=== PATIENT | female | born 1980 | race Hispanic/Latino ===

== ENCOUNTER 2020-05-05 10:57 | Outpatient (CLI) | payer OTHER ==
--- NOTE | 2020-05-05 13:23 | Fluoroscopy Report ---
UPPER GI HISTORY: K30 FUNCTIONAL DYSPEPSIA. TECHNIQUE: Single and double contrast barium technique utilized to evaluate the esophagus, stomach, and duodenal C-loop. FINDINGS: To begin the exam, swallowing was evaluated in the lateral position under direct fluorosco py. Swallowing was normal. No mucosal irregularity, mass, mass effect, or critical stenosis. There were no abnormal tertiary c ontractions as seen with dysmotility. No gastroesophageal reflux. IMPRESSION: Unremarkable exam. Fluoroscopic time: 2.6 minutes Number of fluoroscopic images: 16 Signer Name: Alpesh Gee Jr, MD Signed: 05/05/2020 1:19 PM Workstation Name: [id number]
== END 2020-05-05 10:58 | disposition home or self-care (01) ==
LOC: FLUORO 10:57
PROVIDERS: ATTEND Surgery
DX: K30 Functional dyspepsia (principal)
CPT/HCPCS: 74246

== ENCOUNTER 2020-05-06 10:07 | Day surgery (SDC) | payer OTHER ==
[~2020-05-06 10:07] MED LIST: SODIUM CHLORIDE 0.9% 1000 ML 1,000 ML IV SCH
--- NOTE | 2020-05-06 11:52 | Operative Report ---
Operative Report Operative Report: DATE: 05/06/2020 SURGERY: Upper endoscopy. SURGEON: Magaly Herrera M.D. PROCEDURE: EGD with biopsy PRE OP DX: morbid obesity, GERD POST OP DX: morbid obesity, GERD, gastritis TYPE OF ANESTHESIA: MAC. ESTIMATED BLOOD LOSS: None. COMPLICATIONS: None. SPECIMENS REMOVED: antral biopsy FINDINGS: 1. Small hiatal hernia, gastritis 2. Otherwise, normal esophagus, stomach and first portion of duodenum. INDICATIONS:INDICATION FOR PROCEDURE: Patient is a 39-year-old female with a long history of morbid obesity. She is planned to have a weight loss procedure and is here for preoperative planning EGD. PROCEDURE DETAILS: After consent was reviewed, patient was taken back to the operating room where patient was placed in the left lateral decubitus position and a bite block was placed in the mouth. After a time-out was called, MAC anesthesia was initiated. I then passed the endoscope into her oropharynx, into her esophagus, visualized the entire esophagus, which was all within normal limits. Z-line was noted to about 36cm from incisors. I then visualized the stomach and the first portion of the duodenum and there were no abnormalities I could clearly visualize except for antral gastritis. A cold forceps biopsy of the antrum was taken and will be sent to pathology to evaluate for H.pylori. I then retroflexed the scope in the stomach and visualized the hiatus and I could see a small hiatal hernia. I then desufflated the stomach and removed the endoscope. Patient tolerated procedure well and was transferred to recovery room in good and stable condition.
--- NOTE | 2020-05-06 11:53 | Discharge Summary ---
Providers - Providers Date of Admission: 05/06/2020 Date of discharge: 05/06/20 Attending physician: MYNOR ARMENDARIZ MD Primary care physician: MANAGER [employer]ING Hospitalization Reason for admission: EGD Condition: Good Procedures: EGD Hospital course: Pt presented for a pre-op EGD as part of planning for up coming bariatric surgery. Procedure was uneventful and pt recovered well and was discharged to home. Disposition: DC- TO HOME OR SELFCARE Core Measure Documentation - Palliative Care Palliative Care/ Comfort Measures: Not Applicable - Core Measures Any of the following diagnoses?: none Exam - Physical Exam Narrative exam: unchanged from pre-op Plan Activity: no restrictions Diet: low carbohydrate Follow up with: PRIMARY CAREMD [Primary Care Provider] - 7 Days
[2020-05-06] MEDS ORDERED: LIDOCAINE MPF (2%) 20 MG/1 ML VIAL 5 ML ONE (12:16)
[2020-05-06] MEDS ORDERED: propofoL 200 MG/20 ML VIAL IV ONE ×3 (12:16→12:24)
[2020-05-06] MEDS ORDERED: WATER FOR IRRIG STERILE 250 ML BOTTLE IR ONE (12:23)
[2020-05-06] MEDS ORDERED: KETAMINE/STERILE WATER 50 MG/ML SYRINGE ONE (12:26)
[2020-05-06] MEDS ORDERED: MIDAZOLAM 2 MG/2 ML INJ ONE (12:26)
--- NOTE | 2020-05-06 13:09 | Anesthesia Consultation ---
Anesthesia Consult and Med Hx Date of service: 05/06/20 - Airway Anesthetic Teeth Evaluation: Good ROM Head & Neck: Adequate Mental/Hyoid Distance: Adequate Mallampati Class: Class III Intubation Access Assessment: Possibly Difficult - Pulmonary Exam CTA: Yes - Cardiac Exam Cardiac Exam: RRR - Pre-Operative Health Status ASA Pre-Surgery Classification: ASA3 Proposed Anesthetic Plan: MAC - Pulmonary Hx Smoking: No Hx Respiratory Symptoms: No Hx Sleep Apnea: Yes - Cardiovascular System Hx Hypertension: No - Central Nervous System CVA: No - Endocrine Hx Renal Disease: No Hx Liver Disease: No Hx Insulin Dependent Diabetes: No Hx Non-Insulin Dependent Diabetes: No Hx Thyroid Disease: No - Other Systems Hx Obesity: Yes (BMI 47)
--- NOTE | 2020-05-06 13:09 | Anesthesia Day of Surgery ---
Anesthesia Day of Surgery - Day of Surgery Patient Examined: Yes Patient H&P Reviewed: Yes Patient is NPO: Yes
--- NOTE | 2020-05-06 13:55 | Post Anesthesia Evaluation ---
- Post Anesthesia Evaluation Patient Participated: Yes Airway Patent: Yes Stable Respiratory Function: Yes Nausea/Vomiting: No Temp > 96.8F: Yes Pain Manageable: Yes Adequeate Hydration: Yes Anesthesia Complications: No
[2020-05-06 19:06] VITALS: BP 112/71
== END 2020-05-06 10:08 | disposition home or self-care (01) ==
LOC: GIO 10:07
PROVIDERS: ATTEND Surgery
DX: K21.9 Gastro-esophageal reflux disease without esophagitis (principal); E66.01 Morbid (severe) obesity due to excess calories; K44.9 Diaphragmatic hernia without obstruction or gangrene; G47.33 Obstructive sleep apnea (adult) (pediatric); K29.70 Gastritis, unspecified, without bleeding; K31.89 Other diseases of stomach and duodenum; Z87.891 Personal history of nicotine dependence; Z68.42 Body mass index [BMI] 45.0-49.9, adult
CPT/HCPCS: 43239; 81025; 88305; J2250; J2704; J3490

== ENCOUNTER 2020-05-19 09:15 | Inpatient (IN) | payer OTHER ==
[2020-05-13 11:33] LABS: Basophils # (Auto) 0.1 K/mm3 (0.0-0.1); Basophils % (Auto) 0.7 % (0.0-1.8); Eosinophils # (Auto) 0.2 K/mm3 (0.0-0.4); Eosinophils % (Auto) 2.3 % (0.0-4.3); Hematocrit 30.3 % (30.3-42.9); Hemoglobin 9.5 gm/dl (10.1-14.3); Mean Corpuscular HGB Conc 31 % (30-34); Mean Corpuscular Volume 64 fl (79-97); Monocytes # (Auto) 0.5 K/mm3 (0.0-0.8); Monocytes % (Auto) 6.5 % (0.0-7.3); Platelet Count 381 K/mm3 (140-440); Red Blood Count 4.77 M/mm3 (3.65-5.03)
--- NOTE | 2020-05-13 12:01 | Anesthesia Consultation ---
Anesthesia Consult and Med Hx Date of service: 05/19/20 - Airway Anesthetic Teeth Evaluation: Good ROM Head & Neck: Adequate Mental/Hyoid Distance: Adequate Mallampati Class: Class I Intubation Access Assessment: Good - Pre-Operative Health Status ASA Pre-Surgery Classification: ASA3 Proposed Anesthetic Plan: General - Pulmonary Hx Smoking: Yes (Past hx) Hx Respiratory Symptoms: No (+2FS) Hx Sleep Apnea: Yes (Has not received CPAP yet) - Cardiovascular System Hx Coronary Artery Disease: No (Negative ETT [id number]. Pt states +cardiac clearance) - Central Nervous System Hx Neuromuscular Disorder: Yes (Migraines) Hx Psychiatric Problems: No - Hematic Hx Anemia: Yes - Other Systems Hx Cancer: No
[2020-05-13 13:06] LABS: BUN/Creatinine Ratio 23; Blood Urea Nitrogen 21 mg/dL (7-17); Calcium 10.3 mg/dL (8.4-10.2); Hemolysis Index 7; Iron 317 ug/dL (37-170)
[~2020-05-19 09:15] MED LIST changes: +ENOXAPARIN 40 MG/0.4 ML INJ SUB-Q NR; +LACTATED RINGERS 1,000 ML IV SCH; -SODIUM CHLORIDE 0.9% 1000 ML 1,000 ML IV SCH; +ceFAZolin/Water 2 GM/20 ML 2 GM/20 ML SYRINGE IV NR; +metroNIDAZOLE/NS 500 MG/100 ML 500 MG/100 ML BAG IV NR
[2020-05-19] MEDS ORDERED: HYDROcodone/APAP 7.5-325MG-15ML ORAL LIQD PO PRN (10:56)
[2020-05-19] MEDS ORDERED: MORPHINE 2 MG/1 ML INJ IV PRN (10:56)
[2020-05-19] MEDS ORDERED: ONDANSETRON 4 MG/2 ML INJ IV PRN ×2 (10:56→12:08)
[2020-05-19] MEDS ORDERED: HYDROmorphone 1 MG/1 ML INJ IV PRN (10:56)
[2020-05-19] MEDS ORDERED: hydrALAZINE 20 MG/1 ML INJ IV PRN (10:56)
[2020-05-19] MEDS ORDERED: MIDAZOLAM 2 MG/2 ML INJ IV NR (11:37)
[2020-05-19] MEDS ORDERED: MIDAZOLAM 2 MG/2 ML INJ ONE (11:38)
[2020-05-19] MEDS: SCOPOLAMINE TRANSDERMAL PATCH 72 HR TD SCH (11:40)
[2020-05-19] MEDS ORDERED: fentaNYL 100 MCG/2 ML INJ IV PRN (12:08)
--- NOTE | 2020-05-19 12:08 | Anesthesia Day of Surgery ---
Anesthesia Day of Surgery - Day of Surgery Patient Examined: Yes Patient H&P Reviewed: Yes Patient is NPO: Yes
[2020-05-19] MEDS ORDERED: BUPIVACAINE/PF (0.25%) 2.5 MG/ML 30 ML VIAL INFILTRATI ONE ×2 (13:25→15:16)
[2020-05-19] MEDS ORDERED: LIDOCAINE 1%/EPINEPHRINE 1:100,000 VIAL (20 ML) INFILTRATI ONE ×3 (13:25→15:16)
[2020-05-19] MEDS ORDERED: HYDROmorphone 1 MG/1 ML INJ ONE (14:08)
[2020-05-19] MEDS ORDERED: ROCURONIUM 50 MG/5 ML INJ IV ONE (14:08)
[2020-05-19] MEDS ORDERED: KETOROLAC 30 MG/1 ML INJ ONE (14:08)
[2020-05-19] MEDS ORDERED: ONDANSETRON 4 MG/2 ML INJ ONE (14:08)
[2020-05-19] MEDS ORDERED: dexAMETHasone 20 MG/5 ML VIAL ONE (14:08)
[2020-05-19] MEDS ORDERED: LIDOCAINE MPF (2%) 20 MG/1 ML VIAL 5 ML ONE (14:08)
[2020-05-19] MEDS ORDERED: KETAMINE/STERILE WATER 50 MG/ML SYRINGE ONE (14:09)
[2020-05-19] MEDS ORDERED: propofoL 200 MG/20 ML VIAL IV ONE (14:09)
[2020-05-19] MEDS ORDERED: SODIUM CHLORIDE 0.9% IRRIG SOLN 2000 ML IR ONE (15:17)
[2020-05-19] MEDS ORDERED: NEOSTIGMINE 10MG/10 ML INJ MDV ONE (15:57)
[2020-05-19] MEDS ORDERED: GLYCOPYRROLATE 0.4 MG/2 ML INJ ONE (15:57)
--- NOTE | 2020-05-19 16:05 | Operative Report ---
Operative Report Operative Report: DATE: 07/20/2019 Surgeon: Magaly Herrera MD Sonoscope Operator surgeon: Erich Ashley CSA Pre-op Dx: morbid obesity Post-op Dx: morbid obesity Procedure: 1. laparoscopic sleeve gastrectomy, Anesthesia: GETA EBL: <10ml Specimen: gastric remnant Complication: none immediate Indication: 39 year old female with a history of morbid obesity . Pt is here for sleeve gastrectomy for weight loss to achieve healthier weight and improve or resolve her co-morbidities. She expressed understanding of the risks and b enefits. PROCEDURE IN DETAIL: After consent was reviewed, patient was taken back to the operating room, where patient was placed supine on the bed with both arms out. The patient's legs were doubly strapped to the bed. Patient had a foot board in place. Patient had a body warmer placed by anesthesia. General anesthesia was induced with successful endotracheal intubation. Patient was then prepped and draped in normal sterile surgical fashion. After a time-out was called, I made a stab incision in the left subcostal area and placed a Veress needle through this incision and insufflated the abdomen to 18 mmHg pressure. I then counted down a handsbreadth below the xiphoid process in the midline and slightly left lateral injected local anesthetic and made about 1 cm transverse incision. I then used a 5-mm Optiview trocar to enter into the abdomen. There was no gross injury to any intra-abdominal structures. I then placed a 30-degree scope through this port and inspected the abdomen. I then placed a 5-mm port in the right upper quadrant, and 1 epigastric area below the costovertebral angle. I then placed a 15-mm port about a handsbreadth in the right mid abdomen. After which a 5mm port was placed in left upper quadrant port along the anterior axillary line in a similar fashion. A liver retractor was placed to the epigastric port to elevate the left lateral lobe and liver. The anterior gastric fat pad was excised. Starting approximately 6 cm proximal to the pylorus, using a LigaSure device the short gastrics were taken all the way to the left neel. Once the lateral portio n of the stomach was mobile anesthesia passed a 40 [place] Citizen bougie along the medial aspect to act as a stent. Using serial firings of endoscopic stapler two gold, followed by 4 blue, the lateral portion of the stomach was transected making sure to did not close to the 2 cm to the incisura. All staple loads were supported with Ethicon buttress strips. The sleeve stomach was seen to be without kink obstruction or twisting. The pressure was decreased to 10 mmHg. The staple line was inspected for approximately 5 minutes. There was no significant bleeding appreciated except for a slight loose at the most distal portion of the staple line. Bleeding was minimal and easily controlled with minimal cautery. Tisseel was then sprayed along the entirety of the staple line. The liver retractor was removed. This was after the gastric remnant was grasped and pulled into the 15 mm trocar site. The stomach was extracted via the 15 mm trocar site. After the fascia had to be stretched with a Erica clamp to easily remove the stomach, the fascia was closed using a jeffrey xenia device at the level of the fascia with an 0 PDS. trocars were removed under direct visualization. All skin incisions were closed with 4-0 Monocryl followed by Dermabond. Patient was awoken, extubated, and taken to recovery stable condition. All counts were correct.
[2020-05-19] MEDS ORDERED: LACTATED RINGERS 1,000 ML ONE (16:15)
[2020-05-19] MEDS: SIMETHICONE 80 MG CHEW TAB PO PRN (18:10)
--- NOTE | 2020-05-19 18:10 | Post Anesthesia Evaluation ---
- Post Anesthesia Evaluation Patient Participated: Yes Airway Patent: Yes Stable Respiratory Function: Yes Nausea/Vomiting: Yes (improved with IV antiemetics) Temp > 96.8F: Yes Pain Manageable: Yes Adequeate Hydration: Yes Anesthesia Complications: No Other Comments: Nausea vomiting just prior to transfer to floor with small amount blood tinged saliva. Improved with IV antiemetics.
[2020-05-19] MEDS: metroNIDAZOLE/NS 500 MG/100 ML 500 MG/100 ML BAG IV SCH ×2 (18:11→21:45)
[2020-05-19] MEDS: METOCLOPRAMIDE 10 MG/2 ML INJ IV PRN (20:02)
[2020-05-19] MEDS: ceFAZolin/NS 1 GM/50 ML 1 GM/50 ML BAG IV SCH (21:47)
[2020-05-19] MEDS: KETOROLAC 30 MG/1 ML INJ IV SCH ×3 (21:49→22:22)
[2020-05-20] MEDS: SIMETHICONE 80 MG CHEW TAB PO PRN ×2 (04:42→12:33)
[2020-05-20] MEDS: KETOROLAC 30 MG/1 ML INJ IV SCH ×3 (04:53→17:38)
[2020-05-20] MEDS: metroNIDAZOLE/NS 500 MG/100 ML 500 MG/100 ML BAG IV SCH (05:44)
[2020-05-20] MEDS: ceFAZolin/NS 1 GM/50 ML 1 GM/50 ML BAG IV SCH ×2 (05:45→20:18)
[2020-05-20 06:24] LABS: Hematocrit 26.5 % (30.3-42.9); Mean Corpuscular HGB Conc 30 % (30-34); Platelet Count 292 K/mm3 (140-440); Red Blood Count 3.92 M/mm3 (3.65-5.03)
[2020-05-20 06:28] LABS: Mean Corpuscular Volume 68 fl (79-97); Red Cell Distribution Width 34.3 % (13.2-15.2)
[2020-05-20 06:35] LABS: Alanine Aminotransferase 35 units/L (7-56); Albumin 3.6 g/dL (3.9-5); BUN/Creatinine Ratio 15; Blood Urea Nitrogen 12 mg/dL (7-17); Calcium 8.9 mg/dL (8.4-10.2); Hemolysis Index 4
--- OUTSIDE RECORDS SUMMARY | 2020-05-20 07:02 | External Medical Summary ---
:1980 Author Organization [facility], [facility] Address [address] [place] [address] Care Team Providers Name Role Phone Sharon Unavailable [phone] PROBLEMS Type Condition ICD9-CM [id number] Onset Condition SNOMED Code Notes Code Code Dates Status Problem Dietary Z71.3 Active 188224696 counseling and surveillance Problem Sleep apnea, G47.30 Active 96282760 unspecified Problem Morbid (severe) E66.01 Active 258522486 obesity due to excess calories Problem Functional K30 Active 5915819 dyspepsia Problem Sleep disorder, G47.9 Active 55925548 unspecified Problem Body mass index Z68.42 Active 199679157 [BMI] 45.0-49.9, adult ALLERGIES No Known Allergies ENCOUNTERS from 1980 to 2020-05-19 Encounter Location Date Provider Diagnosis [facility] May, Magaly Herrera Morbi d (severe) [facility] [place] E66.01 [place] [address] Sleep apnea, unspecified G47 .30 IMMUNIZATIONS No Information SOCIAL HISTORY Sex Assigned At : Social History Observation Description Sex Assigned At Unknown REASON FOR REFERRAL from 1980 to 2020-05-19 Diagnosis 1 Morbid (severe) obesity due to excess calories Diagnosis 2 Functional dyspepsia Diagnosis 3 Body mass index [BMI] 45.0-4 9.9, adult Diagnosis 4 Sleep disorder, unspecified Diagnosis 5 Dietary counseling and surve illance Diagnosis 6 Gastro-esophageal reflux dis ease without esophagitis Diagnosis 7 Sleep apnea, unspecified Referral Organization [facility] Referring Provider First Name Magaly Referring Provider Last Name Sharon Referring Provider Specialty Surgery Referring Provider Referring Provider email [email or web address] Referred Provider [facility], - Referral Priority Routine VITAL SIGNS Height 64 in May, Weight 274.2 lbs May, Temperature 98.4 degrees Fahrenheit May, BMI 47 kg/m2 May, Blood pressure systolic 133 mm Hg May, Blood pressure diastolic 84 mm Hg May, MEDICATIONS Medication SIG (Take, Route, Notes Start Date End Date Status Frequency, Duration) Omeprazole 40 MG 1 capsule Orally Once a May, Active day for 30 day(s) Hydrocodone-Acetaminophe 15 ml as needed Orally May, 20 20 May, Active n 7.5-325 MG/15ML every 6 hrs for 7 days Zofran 4 MG 1-2 tablet Orally every May, Active 4-6 hours prn nausea for 30 day(s) PROCEDURES No Information RESULTS No Results REASON FOR VISIT Gastric Sleeve pre op MEDICAL (GENERAL) HISTORY Type Description Date Medical History Morbid (severe) obesity due to excess ca lories Medical History Functional dyspepsia Medical History Body mass index [BMI] 45.0-49.9, adult Medical History sleep apnea Surgical History EGD 04/2020 Goals Section No Information Health Concerns No Information MEDICAL EQUIPMENT No Information MENTAL STATUS No Information FUNCTIONAL STATUS No Information ASSESSMENTS Encounter Date Diagnosis Assessment Notes Treatment Notes Treatm ent Clinical Notes May, Morbid (severe) An hour was spent obesity due to with patient excess calories reinforcing diet, (ICD-10 - E66.01) vitamin requirements and lifestyle education, A quiz was administered and reviewed to verify understanding of intended procedure and post operative care. Consent forms were reviewed with patient and signed answering all questions, Pre-operative labs were ordered. May, Sleep apnea, Continue use of CPAP unspecified machine, should (ICD-10 - G47.30) resolve or greatly improve after weight loss surgery, and will titrate CPAP machine as tolerated. PLAN OF TREATMENT Medication Medication Name Sig Start Date Stop Date Omeprazole 40 MG 1 capsule Orally Once a day May, for 30 day(s) Zofran 4 MG 1-2 tablet Orally every 4-6 May, hours prn nausea for 30 day(s) Hydrocodone-Acetaminophen 15 ml as needed Orally every May, 2 020 9 May, 2020 7.5-325 MG/15ML 6 hrs for 7 days Treatment Notes Assessment Notes Clinical Notes Morbid (severe) obesity due to An hour was spent with patien t excess calories reinforcing diet, vitamin requirements and lifestyle education, A quiz was administered and reviewed to verify understanding of intended procedure and post operative care. Consent forms were reviewed with patient and signed answering all questions, Pre-operative labs were ordered. Sleep apnea, unspecified Continue use of CPAP machine, shoul d resolve or greatly improve after weight loss surgery, and will titrate CPAP machine as tolerated. Referrals Referral Date Details Next Appt Details for surgery Reason: Provider Name:Magaly Herrera, 7 09:30:00 AM, [address] [place] [place], [address], Provider Name:Vikascatrachito Herrera, 2020-05-14 2 01:00:00 PM, [address], [facility] [place], [place], [address], Insurance Providers Payer Name Payer Address Payer Insured Patient Coverage Cover age Phone Name Relationship to Start Date End Date Insured [facility] [address] [phone] [address] self Insurance [facility] [id number]
--- NOTE | 2020-05-20 09:43 | Progress Note ---
Assessment and Plan POD#1 s/p lap sleeve gastrectomy . Afebrile and stable. Pt had post op drop in Hb which is likely due to dilution and she has a hx of heavy bleeding during her menses which she is currently on. She had a Hb of 7.5 a month ago while on her menses and is seeing a intellectual property legal assistant and says she needs to see her plasma processing technician. No clinical signs of leak or bleeding at this time. will recheck labs in am, encourage regular ambulation and clear liquids. Subjective Date of service: 05/20/20 Patient Reports: Positive: feels better, pain is less, tolerating liquids well (no acute events overnight. pt says that her pain is better controlled today and that her nausea has passed.) Objective Vital Signs - 12hr 05/19/20 05/19/20 05/19/20 22:22 22:37 23:58 Temperature 97.9 F Pulse Rate 57 L Respiratory 20 18 Rate Blood Pressure 105/52 O2 Sat by Pulse 99 97 Oximetry 05/20/20 05/20/20 05/20/20 04:53 05:32 05:55 Temperature 98.7 F Pulse Rate 58 L Respiratory 8 L 20 18 Rate Blood Pressure 123/56 O2 Sat by Pulse 95 Oximetry 05/20/20 05/20/20 07:42 07:45 Temperature 98.2 F Pulse Rate 72 Respiratory 18 Rate Blood Pressure 126/57 O2 Sat by Pulse 82 L 92 Oximetry - General physical appearance well developed, well nourished, no distress, no pain - Respiratory normal expansion, normal respiratory effort - Abdomen soft, other (incisions c/d/i, appropriatley tender to palpation) - Labs 05/20/20 06:05 05/20/20 06:05 Diabetes panel 05/20/20 Range/Units 06:05 Sodium 139 (137-145) mmol/L Potassium 4.4 (3.6-5.0) mmol/L Chloride 108.3 H (98-107) mmol/L Carbon Dioxide 22 (22-30) mmol/L BUN 12 (7-17) mg/dL Creatinine 0.8 (0.6-1.2) mg/dL Glucose 114 H (65-100) mg/dL Calcium 8.9 (8.4-10.2) mg/dL AST 27 (5-40) units/L ALT 35 (7-56) units/L Alkaline Phosphatase 47 (35-129) units/L Total Protein 6.3 (6.3-8.2) g/dL Albumin 3.6 L (3.9-5) g/dL Calcium panel 05/20/20 Range/Units 06:05 Calcium 8.9 (8.4-10.2) mg/dL Albumin 3.6 L (3.9-5) g/dL Pituitary panel 05/20/20 Range/Units 06:05 Sodium 139 (137-145) mmol/L Potassium 4.4 (3.6-5.0) mmol/L Chloride 108.3 H (98-107) mmol/L Carbon Dioxide 22 (22-30) mmol/L BUN 12 (7-17) mg/dL Creatinine 0.8 (0.6-1.2) mg/dL Glucose 114 H (65-100) mg/dL Calcium 8.9 (8.4-10.2) mg/dL Adrenal panel 05/20/20 Range/Units 06:05 Sodium 139 (137-145) mmol/L Potassium 4.4 (3.6-5.0) mmol/L Chloride 108.3 H (98-107) mmol/L Carbon Dioxide 22 (22-30) mmol/L BUN 12 (7-17) mg/dL Creatinine 0.8 (0.6-1.2) mg/dL Glucose 114 H (65-100) mg/dL Calcium 8.9 (8.4-10.2) mg/dL Total Bilirubin 0.30 (0.1-1.2) mg/dL AST 27 (5-40) units/L ALT 35 (7-56) units/L Alkaline Phosphatase 47 (35-129) units/L Total Protein 6.3 (6.3-8.2) g/dL Albumin 3.6 L (3.9-5) g/dL
[2020-05-20 11:18] LABS: Basophils % (Manual) 0 % (0.0-1.8); Eosinophils % (Manual) 0 % (0.0-4.3); Hypochromasia 2+; Total Cells Counted 100
[2020-05-20 11:19] LABS: Anisocytosis 3+; Ovalocytes Few; Platelet Estimate Consistent w Auto
[2020-05-20] MEDS: ENOXAPARIN 40 MG/0.4 ML INJ SUB-Q SCH (12:27)
[2020-05-20] MEDS: LACTATED RINGERS 1,000 ML IV SCH (15:21)
[2020-05-20] MEDS ORDERED: LORazepam 2 MG/ML VIAL IV PRN (17:35)
[2020-05-20] MEDS: METOCLOPRAMIDE 10 MG/2 ML INJ IV PRN (17:37)
[2020-05-20] MEDS: SCOPOLAMINE TRANSDERMAL PATCH 72 HR TD SCH (20:16)
[2020-05-21] MEDS: KETOROLAC 30 MG/1 ML INJ IV SCH ×4 (01:19→06:37)
[2020-05-21] MEDS: SIMETHICONE 80 MG CHEW TAB PO PRN (01:41)
[2020-05-21] MEDS: LACTATED RINGERS 1,000 ML IV SCH (04:32)
[2020-05-21 06:51] LABS: Hematocrit 24.1 % (30.3-42.9); Hemoglobin 7.6 gm/dl (10.1-14.3); Mean Corpuscular HGB Conc 32 % (30-34); Platelet Count 266 K/mm3 (140-440); Red Blood Count 3.54 M/mm3 (3.65-5.03)
[2020-05-21 06:56] LABS: Mean Corpuscular Volume 68 fl (79-97); Red Cell Distribution Width 34.1 % (13.2-15.2)
[2020-05-21 06:57] LABS: Basophils % (Auto) 0.6 % (0.0-1.8); Eosinophils # (Auto) 0.1 K/mm3 (0.0-0.4); Eosinophils % (Auto) 0.9 % (0.0-4.3); Lymphocytes # (Auto) 1.6 K/mm3 (1.2-5.4); Lymphocytes % (Auto) 23.7 % (13.4-35.0); Monocytes # (Auto) 0.4 K/mm3 (0.0-0.8); Monocytes % (Auto) 5.6 % (0.0-7.3)
[2020-05-21 07:08] LABS: Alanine Aminotransferase 28 units/L (7-56); Albumin 3.6 g/dL (3.9-5); BUN/Creatinine Ratio 14; Blood Urea Nitrogen 11 mg/dL (7-17); Calcium 8.7 mg/dL (8.4-10.2); Hemolysis Index 0
--- NOTE | 2020-05-21 09:49 | Discharge Summary ---
Providers - Providers Date of Admission: 05/19/20 17:07 Attending physician: MYNOR ARMENDARIZ MD 05/19/20 10:56 Physical Therapy Evaluation and Treat [CONS] Routine Comment: Reason For Exam: post bariatric surgery eval for transfer and abmul Primary care physician: VALUATION CONSULTANT Hospitalization Reason for admission: s/p lap gastric sleeve Condition: Good Procedures: lap gastric sleeve Hospital course: Pt was admitted after a non eventful laparoscopic gastric sleeve. She did well post op with normal vital signs, normal labs , was tolerating clear liquids and ambulating without difficulty. Pain was controlled. She was discharged to home with no clinical signs of leak or bleeding. She was complaining of some chest pressure that she described like esophageal spasms. She says that the spasms have lessened in intensity and frequency. Disposition: DC-01 TO HOME OR SELFCARE Core Measure Documentation - Palliative Care Palliative Care/ Comfort Measures: Not Applicable - Core Measures Any of the following diagnoses?: none Exam - Constitutional Vitals: Temp Pulse Resp BP Pulse Ox 98.2 F 65 16 104/52 98 05/21/20 07:26 05/21/20 07:26 05/21/20 07:26 05/21/20 07:26 05/21/20 07:26 General appearance: Present: no acute distress, obese - Respiratory Respiratory effort: normal - Extremities Extremities: no ischemia - Abdominal General gastrointestinal: Present: soft, other (incisions c/d/i, appropriatley tender to palpation). Absent: distended, rigid Plan Activity: advance as tolerated Diet: clear liquids Wound: open to air Special Instructions: no heavy lifting Follow up with: PRIMARY CAREMD [Primary Care Provider] - 7 Days
[2020-05-21] MEDS: ENOXAPARIN 40 MG/0.4 ML INJ SUB-Q SCH (09:52)
[2020-05-21 13:31] VITALS: BP 123/57
== END 2020-05-21 00:05 | disposition home or self-care (01) | DRG 621 ==
LOC: 3B-SURG 17:07
PROVIDERS: ADMIT Surgery; ATTEND Surgery
PROC: 0DB64Z3 Excision of Stomach, Percutaneous Endoscopic Approach, Vertical (ICD-10-PCS; principal; 2020-05-19)
DX: E66.01 Morbid (severe) obesity due to excess calories (principal); G47.30 Sleep apnea, unspecified; Z68.42 Body mass index [BMI] 45.0-49.9, adult; Z20.828 Contact with and (suspected) exposure to other viral communicable diseases; Z87.891 Personal history of nicotine dependence; D64.9 Anemia, unspecified; G43.909 Migraine, unspecified, not intractable, without status migrainosus
CPT/HCPCS: 36415; 80048; 80053; 83540; 84703; 85007; 85025; 88307; G0378; A4217; C9250; J0690; J1100; J1170; J1650; J1885; J2060; J2250; J2405; J2704; J2710; J2765; J3490; J7120; U0003